=== PATIENT | male | born 1995 | race Caucasian/White ===

== ENCOUNTER 2019-07-04 22:11 | Emergency (ER) | payer BC, SELFPAY ==
[2019-07-04 22:11] VITALS: BP 167/76; PULSE 82; RESP 18; TEMP 37; O2SAT 97; BMI 39.2
--- NOTE | 2019-07-04 22:26 | ED.DCSUM_ITS ---
History of Present Illness Chief Complaint: Abd Pain Informant: Patient, Family Onset: Days - 2 Narrative: Here with mother for evaluation of 2 days of symptoms. States subjective fever, had cramping left side of his abdomen. Yesterday for loose stools today 6 loose stools. No bloody stools no recent antibiotics. Nausea vomiting x1 today with no hematemesis. Currently not nauseated. Mother reports concerns for bowel obstruction due to have hypoactive bowel sounds yesterday. He has no surgical history, he has no pain in the groins or any hernias. He is tolerating oral fluids. States he eats out a lot, similar symptoms a year ago which he states was constipated. Further discussion reports due to symptoms prior to his diarrhea took milk of magnesia. No urinary symptoms. Denies any past medical history. Prior similar symptoms: Yes Past Medical History - Allergies and Home Meds Allergies/Adverse Reactions: Allergies No Known Allergies Allergy (Verified 07/04/19 22:13) Primary Care Physician: Fito Chavez,Out of [Primary Care Provider] - Smoking Status: Never smoker Review of Systems General: Denies: Chills, Fever, Sweats Eyes: Denies: Visual changes - bilaterally, Diplopia ENT: Denies: Rhinorrhea, Sore throat Cardiovascular: Denies: Chest pain, Palpitations Respiratory: Denies: Dyspnea, Cough, Dyspnea on exertion Gastrointestinal: Reports: Diarrhea. Denies: Abdominal pain, Nausea, Vomiting, Melena, Hematochezia Genitourinary: Denies: Dysuria, Hematuria, Frequency Musculoskeletal: Denies: Back pain, Extremity Pain Skin: Denies: Rash, Wounds Neurological: Denies: Headache, Weakness, Numbness Physical Exam Vital Signs/Narrative: Vital Signs Temp Pulse Resp BP Pulse Ox 07/04/19 22:11 98.6 F 82 18 167/76 H 97 Inital Vital Signs reviewed: Yes General: Well nourished, Well developed, No Acute Distress Head: Normocephalic, Atraumatic Eyes: Perrl, EOMI ENT: Moist mucous membranes, No rhinorrhea Neck: Supple, Nontender Cardiovascular: Regular rate, Regular rhythm, No murmurs Respiratory: No distress, CTA bilaterally, Chest nontender Abdomen: Soft, Nontender, Nondistended, Hypoactive bowel sounds, - - Negative Muhammad's or McBurney's tenderness. No guarding or rebound. No pain or bulging in groin region bilaterally. Back: Nontender, Normal Inspection Extremities: Nontender, No edema Skin: Normal color, No rash Neurological: Alert, Oriented x3, Cranial nerves II-XII grossly intact, Normal Strength, Normal Sensation Psychological: Normal affect, Normal Mood Diagnostic/Tx/Re-eval - Medical Decision Making Patient's vital signs stable, nontoxic. Cannot reproduce any abdominal pain on exam. Is nonsurgical abdomen. He has no receipt of risk factors. He has no surgical history or hernias or concerns of bowel obstruction. In addition with history of taking milk of magnesia, could have increase his loose stools. Discussed encourage continue oral hydration at this time. They have Phenergan at home, prescription for Zofran to use as needed. I discussed signs and symptoms that may worsen to return for reevaluation. He is sent home with stool collection kit in case of diarrhea increases. All questions were answered. ED Disposition - Plan for ED Patient: Disposition: Home or Assisted Living Diagnosis: Diarrhea, Abdominal pain Instructions: DIET, Vomiting or Diarrhea [8yr-Adult], ABDOMINAL PAIN, Unkown Cause, (Male) Prescriptions: Ondansetron [Zofran Odt] 4 mg PO Q8H PRN PRN #10 tablet PRN Reason: Nausea Referrals: [facility] Doctor,Out of [Primary Care Provider] - 3-5 Days if not improving
== END 2019-07-04 22:55 | disposition home or self-care (01) ==
LOC: ED 22:42
PROVIDERS: Emergency Provider Emergency Medicine
DX: R19.7 Diarrhea, unspecified (principal); R10.9 Unspecified abdominal pain; R11.2 Nausea with vomiting, unspecified
CPT/HCPCS: 99282